=== PATIENT | female | born 1975 | race American Indian/Alaskan Native ===

== ENCOUNTER 2016-11-21 21:10 | Emergency (ER) | payer BC ==
[2016-11-22] MEDS ORDERED: DELTASONE PO ONE (03:43)
[2016-11-22] MEDS ORDERED: MUCINEX ER PO ONE (03:43)
[2016-11-22] MEDS ORDERED: TYLENOL/CODEINE PO ONE (03:43)
--- NOTE | 2016-11-22 04:13 | Emergency Department Report ---
HPI - General Chief Complaint: Upper Respiratory Infection Time Seen by Provider: 11/22/16 03:22 - HPI HPI: Patient is a 40-year-old female who presents to ED complaining of coughing, generalized body aches 3 days. Patient states she has been experiencing intermittent nonproductive coughing as well as body aches for the past 3 days. Patient states she has been taking Tylenol with minor relief. She states she has not had a fever or nausea or vomiting or diarrhea. Patient had minor aching throat. She denies fever/chills/nausea/vomiting/abdominal pain/chest pain/shortness of breath/dizziness/headache. ED Past Medical Hx - Past Medical History Previous Medical History?: No - Surgical History Past Surgical History?: Yes Additional Surgical History: kidney donation - Social History Smoking Status: Never Smoker Substance Use Type: None - Medications Home Medications: Home Medications Medication Instructions Recorded Confirmed Last Taken Type valACYclovir [Valtrex] 500 mg PO BID 10/31/14 10/31/14 10/29/14 History Famotidine [Pepcid] 20 mg PO BID #20 tablet 06/15/16 Unknown Rx diphenhydrAMINE [Benadryl CAP] 25 mg PO Q6HR PRN #20 capsule 06/15/16 Unknown Rx methylPREDNISolone [Medrol] 4 mg PO DAILY #1 tab.ds.pk 06/15/16 Unknown Rx Acetamin/Codeine 120-12Mg/5 ml 5 ml PO TID PRN #30 ml 11/22/16 Unknown Rx [Tylenol/Codeine 120-12 mg/5 ml] Ibuprofen [Motrin 600 MG tab] 600 mg PO Q8H PRN #15 tablet 11/22/16 Unknown Rx guaiFENesin ER [Mucinex ER] 600 mg PO BID #12 tablet 11/22/16 Unknown Rx ED Review of Systems ROS: Stated complaint: CHEST PAIN, BODY PAIN, GAGGING Other details as noted in HPI Constitutional: malaise. denies: chills, fever Eyes: denies: eye pain, eye discharge, vision change ENT: denies: ear pain, throat pain, dental pain, hearing loss, epistaxis, congestion Respiratory: cough. denies: shortness of breath, wheezing Cardiovascular: denies: chest pain, palpitations Endocrine: no symptoms reported Gastrointestinal: denies: abdominal pain, nausea, diarrhea Genitourinary: denies: urgency, dysuria, discharge Musculoskeletal: denies: back pain, joint swelling, arthralgia Skin: denies: rash, lesions Neurological: denies: headache, weakness, numbness, paresthesias, confusion Psychiatric: denies: anxiety, depression Hematological/Lymphatic: denies: easy bleeding, easy bruising Physical Exam - Physical Exam Vital Signs: Vital Signs 11/21/16 21:39 Temperature 98.9 F Pulse Rate 93 H Respiratory 18 Rate Blood Pressure 116/80 O2 Sat by Pulse 100 Oximetry Physical Exam: GENERAL: Alert and oriented x3, no apparent distress, Normal Gait, atraumatic. HEAD: Head is normocephalic and a-traumatic. EYES: Extra ocular muscles are intact. Pupils are equal, round, and reactive to light and accommodation. EARS: symetrical, atraumatic, non tender, ear canal clear left ear while right ear as and moderate cerumen, tympanic membrance non inflamed. gross auditory nml bilaterally. NOSE: Nose symetrical, Nontender,Nares appeared normal. MOUTH:Mouth is well hydrated and without lesions. Tonsils nonerythematous or swollen, Uvula midline, Tongue not elevated. Mucous membranes are moist. Posterior pharynx clear, no exudate or lesions. Patent airways. NECK: Supple. Non edematous, No carotid bruits. No lymphadenopathy or thyromegaly. LUNGS: Symetrical with respiration, No wheezing, no rales or crackles, CTAB. HEART: S1, S2 present, regular rate and rhythm without murmur, no rubs, no gallops. NEUROLOGIC: No focal Deficit, Cranial nerves II through XII are grossly intact. No loss of sensation, PSYCHIATRIC: Mood is congruent with affect, denies suicidal or homicidal ideations. SKIN: Warm and dry, No lesions, No ulceration or induration present. ED Course Vital Signs 11/21/16 21:39 Temperature 98.9 F Pulse Rate 93 H Respiratory 18 Rate Blood Pressure 116/80 O2 Sat by Pulse 100 Oximetry ED Medical Decision Making - Medical Decision Making 40-year-old female presents with upper respiratory infection. ED course: Patient received Mucinex, Tylenol with Codeine, 20 mg of prednisone. Discussed the patient light, URI symptoms in the last 2-4 weeks. Discussed only take Motrin one needed for pain. Can continue to take Tylenol Discussed this rest, increase hydration, follow-up with primary care physician. Discussed to take medications as prescribed and [id number] medication for symptoms. Patient is in no acute respiratory distress. Vital signs are normal and chemistries discharged home on medications and instructions Critical care attestation.: If time is entered above; I have spent that time in minutes in the direct care of this critically ill patient, excluding procedure time. ED Disposition Clinical Impression: Bronchitis URI (upper respiratory infection) Qualifiers: URI type: unspecified URI Qualified Code(s): J06.9 - Acute upper respiratory infection, unspecified Disposition: DISCHARGED TO HOME OR SELFCARE Is pt being admited?: No Does the pt Need Aspirin: No Condition: Stable Instructions: Acute Bronchitis (ED), Upper Respiratory Infection (ED), Viral Syndrome (ED) Additional Instructions: Take [id number]-afeakma medications such as pseudoephedrine as needed for symptoms Follow-up which her primary care physician Prescriptions: Acetamin/Codeine 120-12Mg/5 ml [Tylenol/Codeine 120-12 mg/5 ml] 5 ml PO TID PRN #30 ml PRN Reason: Pain guaiFENesin ER [Mucinex ER] 600 mg PO BID #12 tablet Ibuprofen [Motrin 600 MG tab] 600 mg PO Q8H PRN #15 tablet PRN Reason: Pain Referrals: PRIMARY CARE, [Primary Care Provider] - 3-5 Days CHEYANNE DEY MD [Referring] - 3-5 Days ROCK LAMAS MD [Referring] - 3-5 Days [facility] [Outside] - 3-5 Days [facility] [Outside] - 3-5 Days Forms: Work/School Release Form(ED) Time of Disposition: 04:18
[2016-11-22 04:31] VITALS: BP 119/75
== END 2016-11-22 04:30 | disposition home or self-care (01) ==
LOC: ED 21:10
DX: J40 Bronchitis, not specified as acute or chronic (principal); R06.9 Unspecified abnormalities of breathing
CPT/HCPCS: 93005; 93010; 99282; J7512